=== PATIENT | female | born 1985 | race Caucasian/White ===

== ENCOUNTER 2017-10-22 18:41 | Emergency (ER) | payer OTHER ==
[~2017-10-22] VITALS: Ht 172.7 cm; Wt 89.8 kg
[2017-10-22 18:42] VITALS: Ht 172.7 cm; Wt 89.8 kg
[2017-10-22 20:51] VITALS: BP 124/86
== END 2017-10-22 21:10 | disposition home or self-care (01) ==
LOC: ED 18:41
DX: M51.36 Other intervertebral disc degeneration, lumbar region (principal); K59.00 Constipation, unspecified; E11.9 Type 2 diabetes mellitus without complications
CPT/HCPCS: J1885

== ENCOUNTER 2020-07-19 14:18 | Emergency (ER) | payer OTHER ==
[~2020-07-19] VITALS: Ht 172.7 cm; Wt 98.4 kg
[2020-07-19 14:44] VITALS: Ht 172.7 cm; Wt 98.4 kg
[2020-07-19 17:10] VITALS: BP 130/89
== END 2020-07-19 17:10 | disposition home or self-care (01) ==
LOC: ED 14:18
DX: R51.9 Headache, unspecified (principal); H92.03 Otalgia, bilateral; E11.9 Type 2 diabetes mellitus without complications
CPT/HCPCS: J1885